=== PATIENT | female | born 1980 | race Caucasian/White ===

== ENCOUNTER 2018-12-16 12:06 | Emergency (ER) | payer MEDICAID ==
[~2018-12-16] VITALS: Ht 175.3 cm; Wt 91.6 kg
[2018-12-16 12:12] VITALS: Ht 175.3 cm; Wt 91.6 kg
== END 2018-12-16 12:41 | disposition home or self-care (01) ==
LOC: ED 12:06
DX: J03.90 Acute tonsillitis, unspecified (principal); I10 Essential (primary) hypertension; E11.9 Type 2 diabetes mellitus without complications; R51 Headache

== ENCOUNTER 2019-05-23 10:57 | Emergency (ER) | payer MEDICAID ==
[~2019-05-23] VITALS: Ht 167.6 cm; Wt 85.3 kg
[2019-05-23 11:03] VITALS: Ht 167.6 cm; Wt 85.3 kg
[2019-05-23 11:34] LABS: PLATELET COUNT 156 x10^3mcL (130-400); RED CELL DISTRIBUTION WIDTH 12.8 % (11.5-14.5)
[2019-05-23 11:36] LABS: BASOPHIL % 0 % (0-2)
[2019-05-23 11:52] LABS: ALBUMIN 3.6 g/dL (3.4-5.0); ALKALINE PHOSPHATASE 76 U/L (46-116); ALT/SGPT 24 U/L (14-59); AST/SGOT 13 U/L (15-37); CALCIUM 8.2 mg/dL (8.5-10.1); CARBON DIOXIDE 29.4 mmol/L (21-32); CHLORIDE SERUM 100 mmol/L (98-107); CHOLESTEROL 145 mg/dL (<200); CREATININE SERUM 0.9 mg/dL (0.6-1.0); GFR1 > 60 mL/min; GLUCOSE SERUM 380 mg/dL (74-106); POTASSIUM SERUM 4.2 mmol/L (3.5-5.1); SODIUM SERUM 137 mmol/L (136-145); TOTAL PROTEIN, SERUM 7.5 g/dL (6.4-8.2); TRIGLYCERIDES 53 mg/dL (<150)
[2019-05-23 11:54] LABS: CHOLESTEROL/HDL RATIO 2.2; HDL CHOLESTEROL 65 mg/dL (40-60)
[2019-05-23 12:02] LABS: microscopic required? YES; urine erythrocyte 3+ (NEGATIVE)
[2019-05-23 16:00] VITALS: BP 115/65
== END 2019-05-23 16:00 | disposition home or self-care (01) ==
LOC: ED 10:57
PROVIDERS: Specialist
DX: N20.0 Calculus of kidney (principal); E11.65 Type 2 diabetes mellitus with hyperglycemia; N39.0 Urinary tract infection, site not specified; I10 Essential (primary) hypertension; E11.9 Type 2 diabetes mellitus without complications; Z98.890 Other specified postprocedural states
CPT/HCPCS: 82962; 99406; J0696; J1885; J7030; J7060